=== PATIENT | male | born 1955 | race Caucasian/White ===

== ENCOUNTER → 2016-06-16 | Day surgery (SDC) | payer OTHER ==
[~2016-06-16] MED LIST: ACETAMINOPHEN 1000 MG/100 ML VIAL IV ONE; BUPIVACAINE/EPINEPHRINE 0.25% 50 ML VIAL ONE; GLUC10TA3 PO; KETOROLAC TROMETHAMINE 30 MG/ML (IVP) VIAL IV PUSH ONE; LACTATED RINGER'S 1000 ML INJ 1,000 ML ONE; MEPERIDINE HCL 25 MG/ML VIAL ONE; METF850T PO; MIDAZOLAM HCL 2 MG/2 ML VIAL ONE; ONDANSETRON HCL 4 MG/2 ML VIAL IV PUSH ONE; PROPOFOL 200 MG/20 ML AMP IV ONE; SODIUM CHLOR 0.9% 250 ML BAG IV ONE; VANCOMYCIN HCL 1000 MG VIAL ONE; ceFAZolin INJ 1,000 MG VIAL ONE
--- NOTE | 2016-06-17 07:28 | MP ---
cc: TEOFILO WICK M.D., GEORGE MD DATE OF SURGERY 06/16/2016 PROCEDURE 1. Laparoscopic right inguinal hernia repair with mesh. 2. Primary umbilical hernia repair. PREOPERATIVE DIAGNOSIS 1. Symptomatic reducible right inguinal hernia. 2. Reducible umbilical hernia. POSTOPERATIVE DIAGNOSIS 1. Symptomatic reducible right inguinal hernia. 2. Reducible umbilical hernia. ANESTHESIA LMA SURGEON Teofilo Wick MD ESTIMATED BLOOD LOSS 50 mL FLUIDS 1150 mL crystalloid COMPLICATIONS None DRAINS None SPECIMEN None PROCEDURE IN DETAIL The patient was seen in the holding area and the right side marked by the undersigned and confirmed by the patient. He was taken to the operating room and placed on the operating table in the supine position. The patient had previously shaved the lower part of the suprapubic region and the remainder of the lower abdomen was shaved, prepped and draped. Time-out was taken confirming the correct patient site and procedures to be performed. Skin and subcutaneous tissue was infiltrated with local anesthetic in the umbilicus and an incision carried down through the fascia. The peritoneal cavity was directly visualized and palpated. The 12 mm balloon trocar was then inserted and the balloon inflated. The abdomen was insufflated and the patient was placed in Trendelenburg position. A 10 mm 30 degrees laparoscope was inserted and the patient's hernia was readily apparent. A 12 mm trocar was then placed in the right lower quadrant under direct vision uneventfully. A 5-mm trocar was placed in the left lower quadrant under direct vision uneventfully. Attention was then turned to the hernia. The peritoneum was incised sharply and dissection carried out medially to the medial umbilical ligament. The peritoneum was then dissected downward. The patient was noted to have an indirect inguinal hernia. Fred's ligament was dissected free and the hernia sac, which was some somewhat firmly adherent to this spermatic cord structures, was dissected off of the cord structures to completely reduce it. A window was created behind the vas deferens and spermatic cord structures. The epigastric vessels were divided to allow for better repair as the indirect hernia came all the way across to the blood vessels. A 3 x 6 inch piece of Ultrapro mesh was rounded at the corners and a longitudinal slit was made. The mesh was placed into the pelvis. The inferior leaf of mesh was brought under the spermatic cord structures. The mesh was then transfixed to Fred's ligament with 4.0 mm garth. One small bleeding point was controlled with pressure. The transversalis fascia was fixed on the anterior abdominal wall with 4.8 mm garth. The slit was closed laterally with 4.8 mm garth, creating a new internal ring. When this had been completed and the defect was completely encircled with at least 5 cm of mesh, insufflation was decreased. The peritoneum was reapproximated with 4.8 mm garth. The remaining local anesthetic was injected into the right groin region. Insufflation was then completely discontinued and the 12 and 5 mm ports were removed. No bleeding was noted from the port sites. The laparoscope and umbilical port were then removed. The fascia was closed in the right lower quadrant 12-mm trocar site with a 0 Vicryl suture. The umbilical hernia was closed with interrupted 0 Vicryl suture. Bleeding points near the skin was controlled with electrocautery. All three trocar sites were then closed at the skin with interrupted buried 4-0 Vicryl suture. All wounds were dressed with Steri-Strips. The patient was extubated and taken back to the recovery room in stable condition. An athletic supporter and an abdominal binder were applied. Sponge and needle counts were reported to be correct. The patient tolerated the procedure well. This is the end of the operative report. MD SHOLA Pimentel/KELLI /12:48 PM /7:12 AM
== END | disposition home or self-care (01) ==
LOC: ESDC 08:44
PROVIDERS: ATTEND Surgery Trauma Surgery
DX: K40.90 Unilateral inguinal hernia, without obstruction or gangrene, not specified as recurrent (principal); K42.9 Umbilical hernia without obstruction or gangrene
CPT/HCPCS: 00750; 00840; 49585; 49650; C1781; J0131; J0690; J1885; J2175; J2250; J2405; J3010; J3370; J7050; J7120